=== PATIENT | male | born 1950 | race Caucasian/White ===

== ENCOUNTER 2017-01-16 10:34 | Inpatient (IN) | payer MEDICARE, MEDICAID ==
[~2017-01-16] VITALS: Ht 177.8 cm; Wt 125.6 kg
[~2017-01-16 10:34] MED LIST: CARV6.2548 PO; FURO-151 PO
[2017-01-16] MEDS ORDERED: ACETAMINOPHEN 325MG TABLET PO STA (10:37)
[2017-01-16] MEDS ORDERED: IPRATROPIUM BROMIDE (0.02%) 0.5MG/2.5ML NEB HHN ONE (10:45)
[2017-01-16] MEDS ORDERED: ALBUTEROL (0.5%) 2.5MG/0.5ML NEB HHN ONE (10:45)
[2017-01-16] MEDS ORDERED: METHYLPREDNISOLONE SOD SUCC 125 MG/2 ML VIAL IV ONE (10:45)
[2017-01-16 11:40] LABS: HEMATOCRIT. 40.3 % (42.0-52.0); HEMOGLOBIN. 13.1 g/dL (14.0-18.0); MEAN CORPUSCULAR HEMOGLOBIN 28.6 pg (28.0-32.0); MEAN CORPUSCULAR VOLUME 88.1 fL (80.0-94.0); MEAN PLATELET VOLUME 8.1 fl (7.4-10.4); PLATELET 251 x1000/uL (130-400); RED BLOOD CELL COUNT 4.57 mill/uL (4.7-6.1); RED CELL DISTRIBUTION WIDTH 16.2 % (11.6-14.6)
[2017-01-16 11:50] LABS: INR 1.1
[2017-01-16 11:53] LABS: CARBON DIOXIDE 34 mEq/L (21-32); CHLORIDE 92 mEq/L (98-107)
[2017-01-16 12:00] LABS: TROPONIN I < 0.02 ng/mL (0.00-0.04)
[2017-01-16] MEDS ORDERED: VANCOMYCIN 1 G PREMIX 200 ML IV ONE (12:15)
[2017-01-16] MEDS ORDERED: PIPERACILLIN/TAZ 3.375G PREMIX 50 ML IV ONE (12:15)
[2017-01-16 13:14] LABS: PLATELET ESTIMATE NORMAL
[2017-01-16] MEDS ORDERED: IPRATROPIUM/ALBUTEROL 0.5-3(2.5)MG/3ML NEB INH PRN (14:00)
[2017-01-16] MEDS ORDERED: NA PHOS,M-B/NA PHOS,DI-BA ENEMA 118ML PR PRN (14:00)
[2017-01-16] MEDS ORDERED: CLONIDINE 0.1MG TABLET PO PRN (14:00)
[2017-01-16] MEDS ORDERED: LORAZEPAM 2MG/ML CPJ IV PRN (14:00)
[2017-01-16] MEDS ORDERED: MAGNESIUM/ALUMINUM HYDROXIDE/SIMETHICONE 30ML UDC PO PRN (14:00)
[2017-01-16] MEDS ORDERED: HYDROCODONE/ACETAMINOPHEN 5/325MG TABLET PO PRN (14:00)
[2017-01-16] MEDS ORDERED: HYDROMORPHONE HCL/PF 2MG/ML CPJ IV PRN (14:00)
[2017-01-16] MEDS ORDERED: ONDANSETRON HCL 4MG/2ML VIAL IV PRN (14:00)
[2017-01-16 14:03] LABS: BG BASE EXCESS 7.5 mmol/L (-2.0-2.0); BG BILEVEL POS AIRWAY PRESSURE 15/5; BG CARBOXYHEMOGLOBIN 0.9 % (0.5-1.5); BG DEOXYHEMOGLOBIN 9.8 % (0.0-5.0); BG HCO3 ACT 35.7 mmol/L (22.0-26.0); BG METHEMOGLOBIN 0.2 % (0.0-1.5); BG OXYGEN SATURATION 90.1 % (92.0-98.5); BG OXYHEMOGLOBIN 89.1 % (94.0-97.0); BG PCO2 67.3 mmHg (35.0-45.0); BG PH 7.343 (7.350-7.450); BG SAMPLE SITE RIGHT RADIAL; BG TOTAL HEMOGLOBIN 14.3 g/dL (12.0-18.0); BG VENT MODE MASK - BIPAP; BG VENT RATE 14 set
[2017-01-16] MEDS ORDERED: AMINOPHYLLINE 1,000 MG in SODIUM CHLORIDE 0.9% 210 ML IV SCH ×4 (16:00)
[2017-01-16] MEDS ORDERED: DEXTROSE 50% WATER 50ML SYRINGE IV PRN (17:15)
[2017-01-16 17:16] VITALS: BP 130/82
[2017-01-16] MEDS ORDERED: DOCUSATE SODIUM 100MG CAPSULE PO PRN (17:30)
[2017-01-16 18:00] VITALS: BP 112/63
[2017-01-16] MEDS ORDERED: LEVOFLOXACIN 500MG PREMIX 100 ML IV SCH (18:00)
[2017-01-16] MEDS: INSULIN LISPRO 100 UNITS/ML SUBCUT SCH ×2 (18:08→20:53)
[2017-01-16] MEDS: ASPIRIN 81MG EC TABLET PO SCH (18:15)
[2017-01-16] MEDS: METHYLPREDNISOLONE SOD SUCC 125 MG/2 ML VIAL IV SCH ×2 (18:16→23:23)
[2017-01-16 18:30] VITALS: BP 113/64
[2017-01-16] MEDS ORDERED: FUROSEMIDE 40MG TABLET PO SCH (19:30)
[2017-01-16 20:00] VITALS: BP 105/67
[2017-01-16] MEDS: BLOOD SUGAR DIAGNOSTIC STRIP TEST SCH (20:52)
[2017-01-16] MEDS: ENOXAPARIN 40MG/0.4ML SYR SUBCUT SCH (20:55)
[2017-01-16] MEDS: IPRATROPIUM/ALBUTEROL 0.5-3(2.5)MG/3ML NEB HHN SCH (21:04)
[2017-01-16 21:20] LABS: BG BASE EXCESS 6.5 mmol/L (-2.0-2.0); BG BILEVEL POS AIRWAY PRESSURE 15/5; BG CARBOXYHEMOGLOBIN 0.7 % (0.5-1.5); BG DEOXYHEMOGLOBIN 10.1 % (0.0-5.0); BG FRACTION INSPIRED OXYGEN 55; BG METHEMOGLOBIN 0.4 % (0.0-1.5); BG OXYGEN SATURATION 89.8 % (92.0-98.5); BG OXYHEMOGLOBIN 88.8 % (94.0-97.0); BG PCO2 61.6 mmHg (35.0-45.0); BG SAMPLE SITE RIGHT RADIAL; BG TOTAL HEMOGLOBIN 14.2 g/dL (12.0-18.0); BG VENT MODE MASK - BIPAP
[2017-01-16 22:00] VITALS: BP 130/72
[2017-01-16 23:36] LABS: CARBON DIOXIDE 32 mEq/L (21-32); CHLORIDE 93 mEq/L (98-107); TROPONIN I < 0.02 ng/mL (0.00-0.04)
[2017-01-17] VITALS (13 sets, daily range): BP systolic 108–134; BP diastolic 40–90
[2017-01-17 00:32] LABS: CLARITY URINE CLEAR (CLEAR); COLOR URINE DARK YELLOW (YELLOW); GLUCOSE URINE TRACE (NEGATIVE); KETONES URINE NEGATIVE (NEGATIVE); LEUKOCYTE ESTERASE URINE NEGATIVE (NEGATIVE); NITRITE URINE NEGATIVE (NEGATIVE); OCCULT BLOOD URINE TRACE (NEGATIVE); PROTEIN URINE 1+ (NEGATIVE); SPECIFIC GRAVITY URINE 1.024 (1.005-1.030); UROBILINOGEN URINE 0.2 E.U./dL (0.2-1.0)
[2017-01-17] MEDS: IPRATROPIUM/ALBUTEROL 0.5-3(2.5)MG/3ML NEB HHN SCH ×6 (00:36→20:14)
[2017-01-17] MEDS: BLOOD SUGAR DIAGNOSTIC STRIP TEST SCH ×4 (05:37→20:34)
[2017-01-17] MEDS: METHYLPREDNISOLONE SOD SUCC 125 MG/2 ML VIAL IV SCH ×3 (05:37→17:11)
[2017-01-17 05:50] LABS: HEMATOCRIT. 40.2 % (42.0-52.0); HEMOGLOBIN. 13.2 g/dL (14.0-18.0); MEAN CORPUSCULAR HEMOGLOBIN 28.9 pg (28.0-32.0); MEAN CORPUSCULAR VOLUME 88.2 fL (80.0-94.0); MEAN PLATELET VOLUME 8.2 fl (7.4-10.4); PLATELET 258 x1000/uL (130-400); RED BLOOD CELL COUNT 4.56 mill/uL (4.7-6.1); RED CELL DISTRIBUTION WIDTH 15.7 % (11.6-14.6)
[2017-01-17 06:42] LABS: CHLORIDE 94 mEq/L (98-107)
[2017-01-17 06:49] LABS: CARBON DIOXIDE 34 mEq/L (21-32); HDL CHOLESTEROL 42 mg/dL (40-59); LDL CHOLESTEROL 91 mg/dL (5-100)
[2017-01-17] MEDS: INSULIN LISPRO 100 UNITS/ML SUBCUT SCH ×4 (08:04→20:35)
[2017-01-17] MEDS: ENOXAPARIN 40MG/0.4ML SYR SUBCUT SCH ×2 (08:05→20:32)
[2017-01-17] MEDS: FUROSEMIDE 40MG/4ML VIAL IV SCH (08:05)
[2017-01-17] MEDS: ASPIRIN 81MG EC TABLET PO SCH (08:05)
[2017-01-17] MEDS: CARVEDILOL 6.25 MG TABLET PO SCH ×2 (08:17→17:12)
[2017-01-17 09:02] LABS: BG BASE EXCESS 6.7 mmol/L (-2.0-2.0); BG CARBOXYHEMOGLOBIN 0.2 % (0.5-1.5); BG DEOXYHEMOGLOBIN 10.1 % (0.0-5.0); BG FRACTION INSPIRED OXYGEN 36; BG HCO3 ACT 35.5 mmol/L (22.0-26.0); BG METHEMOGLOBIN 0.2 % (0.0-1.5); BG OXYGEN SATURATION 89.9 % (92.0-98.5); BG OXYHEMOGLOBIN 89.5 % (94.0-97.0); BG PCO2 70.5 mmHg (35.0-45.0); BG PO2 59.9 mmHg (75.0-100.0); BG SAMPLE SITE RIGHT RADIAL; BG TOTAL HEMOGLOBIN 14.7 g/dL (12.0-18.0); BG VENT MODE NASAL CANNULA
[2017-01-17] MEDS: VANCOMYCIN 1500MG in DEXTROSE 5% WATER 250ML IV SCH (11:59)
[2017-01-17] MEDS ORDERED: MORPHINE SULFATE 10 MG/ML CPJ IV PRN (13:15)
[2017-01-17] MEDS ORDERED: TERBUTALINE SULFATE 1MG/ML VIAL SUBCUT SCH (13:15)
[2017-01-17] MEDS ORDERED: THIAMINE HCL 100MG TABLET PO SCH (13:15)
[2017-01-17] MEDS ORDERED: FUROSEMIDE 40MG/4ML VIAL IVP SCH (13:15)
[2017-01-17] MEDS ORDERED: FOLIC ACID IV SCH (14:00)
[2017-01-17] MEDS ORDERED: SODIUM CHLORIDE 0.9% IV SCH (14:00)
[2017-01-17 14:30] LABS: PLATELET ESTIMATE NORMAL
[2017-01-17] MEDS ORDERED: SODIUM BICARBONATE 4% (2.4MEQ) 5ML VIAL IV ONE (15:01)
[2017-01-17] MEDS ORDERED: LIDOCAINE HCL 1% 20ML VIAL (Pyxis) INJ ONE (15:01)
[2017-01-17 15:41] LABS: *AMPHETAMINES SCREEN URINE NEGATIVE (NEGATIVE); *BARBITURATES SCREEN URINE NEGATIVE (NEGATIVE); *BENZODIAZEPINES SCREEN URINE NEGATIVE (NEGATIVE); *COCAINE SCREEN URINE NEGATIVE (NEGATIVE); CANNABINOID URINE SCREEN NEGATIVE (NEGATIVE); METHADONE URINE SCREEN NEGATIVE (NEGATIVE); OPIATES URINE SCREEN PRESUMTIVE POSITIVE (NEGATIVE); PHENCYCLIDINE URINE SCREEN NEGATIVE (NEGATIVE)
[2017-01-17 16:58] LABS: AMMONIA 30 uMol/L (<32)
[2017-01-17 18:04] LABS: HEPATITIS B SURFACE ANTIGEN NEGATIVE
[2017-01-17 18:32] LABS: HEPATITIS B CORE AB IGM NEGATIVE
[2017-01-17] MEDS ORDERED: LEVOFLOXACIN 500MG PREMIX 100 ML IV SCH (20:00)
[2017-01-17] MEDS: BUDESONIDE 0.5MG/2ML NEB HHN SCH (20:13)
[2017-01-17 20:35] LABS: BG BASE EXCESS 11.9 mmol/L (-2.0-2.0); BG BILEVEL POS AIRWAY PRESSURE 15/5; BG CARBOXYHEMOGLOBIN 0.5 % (0.5-1.5); BG DEOXYHEMOGLOBIN 7.8 % (0.0-5.0); BG FRACTION INSPIRED OXYGEN 55; BG HCO3 ACT 39.3 mmol/L (22.0-26.0); BG METHEMOGLOBIN 0.3 % (0.0-1.5); BG OXYGEN SATURATION 92.1 % (92.0-98.5); BG OXYHEMOGLOBIN 91.4 % (94.0-97.0); BG PH 7.413 (7.350-7.450); BG PO2 61.5 mmHg (75.0-100.0); BG SAMPLE SITE RIGHT RADIAL; BG TOTAL HEMOGLOBIN 14.1 g/dL (12.0-18.0); BG VENT MODE MASK - BIPAP
[2017-01-18] VITALS (18 sets, daily range): BP systolic 104–157; BP diastolic 60–93
[2017-01-18] MEDS: IPRATROPIUM/ALBUTEROL 0.5-3(2.5)MG/3ML NEB HHN SCH ×6 (00:41→20:47)
[2017-01-18] MEDS: METHYLPREDNISOLONE SOD SUCC 125 MG/2 ML VIAL IV SCH ×4 (00:45→20:36)
[2017-01-18] MEDS: VANCOMYCIN 1500MG in DEXTROSE 5% WATER 250ML IV SCH (06:09)
[2017-01-18] MEDS: BLOOD SUGAR DIAGNOSTIC STRIP TEST SCH ×4 (06:55→20:50)
[2017-01-18 07:21] LABS: BG BASE EXCESS 12.1 mmol/L (-2.0-2.0); BG BILEVEL POS AIRWAY PRESSURE 15/5; BG CARBOXYHEMOGLOBIN 0.3 % (0.5-1.5); BG DEOXYHEMOGLOBIN 7.4 % (0.0-5.0); BG FRACTION INSPIRED OXYGEN 55; BG HCO3 ACT 39.9 mmol/L (22.0-26.0); BG METHEMOGLOBIN 0.2 % (0.0-1.5); BG OXYGEN SATURATION 92.6 % (92.0-98.5); BG OXYHEMOGLOBIN 92.1 % (94.0-97.0); BG PCO2 65.4 mmHg (35.0-45.0); BG PH 7.403 (7.350-7.450); BG PO2 62.6 mmHg (75.0-100.0); BG SAMPLE SITE RIGHT RADIAL; BG TOTAL HEMOGLOBIN 14.2 g/dL (12.0-18.0); BG VENT MODE MASK - BIPAP
[2017-01-18] MEDS: INSULIN LISPRO 100 UNITS/ML SUBCUT SCH ×4 (08:35→21:23)
[2017-01-18] MEDS: ASPIRIN 81MG EC TABLET PO SCH (08:37)
[2017-01-18] MEDS: CARVEDILOL 6.25 MG TABLET PO SCH ×2 (08:37→16:56)
[2017-01-18] MEDS: MULTIVITAMINS,THER W-MINERALS TABLET PO SCH (08:37)
[2017-01-18] MEDS: FUROSEMIDE 40MG/4ML VIAL IV SCH (08:37)
[2017-01-18] MEDS: THIAMINE HCL 100MG TABLET PO SCH (08:37)
[2017-01-18] MEDS ORDERED: LIDOCAINE HCL 1% 20ML VIAL (Pyxis) INJ ONE (08:44)
[2017-01-18] MEDS: FOLIC ACID 1MG TABLET PO SCH (08:49)
[2017-01-18] MEDS: BUDESONIDE 0.5MG/2ML NEB HHN SCH ×2 (08:52→20:48)
[2017-01-18] MEDS: ENOXAPARIN 40MG/0.4ML SYR SUBCUT SCH ×2 (10:46→20:37)
[2017-01-18] MEDS ORDERED: DEXTROSE 50% WATER 50ML SYRINGE IV PRN (11:15)
[2017-01-18] MEDS ORDERED: TETANUS, DIPHTHERIA, PERTUSSIS VAC/PF 0.5ML (>7YR OLD) IM ONE (13:45)
[2017-01-18] MEDS: RIFAMPIN 300MG CAPSULE PO SCH (14:54)
[2017-01-18] MEDS: GUAIFENESIN 200MG/10ML SUGAR FREE UDC PO PRN (18:06)
[2017-01-19] VITALS (16 sets, daily range): BP systolic 98–158; BP diastolic 57–88
[2017-01-19] MEDS: GUAIFENESIN 200MG/10ML SUGAR FREE UDC PO PRN (00:11)
[2017-01-19] MEDS: VANCOMYCIN 1500MG in DEXTROSE 5% WATER 250ML IV SCH (00:11)
[2017-01-19] MEDS: IPRATROPIUM/ALBUTEROL 0.5-3(2.5)MG/3ML NEB HHN SCH ×6 (00:31→20:53)
[2017-01-19] MEDS: METHYLPREDNISOLONE SOD SUCC 125 MG/2 ML VIAL IV SCH ×3 (05:31→21:26)
[2017-01-19 06:56] LABS: HEMATOCRIT. 39.8 % (42.0-52.0); HEMOGLOBIN. 13.3 g/dL (14.0-18.0); MEAN CORPUSCULAR HEMOGLOBIN 29.3 pg (28.0-32.0); MEAN CORPUSCULAR VOLUME 87.9 fL (80.0-94.0); MEAN PLATELET VOLUME 8.3 fl (7.4-10.4); PLATELET 268 x1000/uL (130-400); RED BLOOD CELL COUNT 4.53 mill/uL (4.7-6.1); RED CELL DISTRIBUTION WIDTH 15.7 % (11.6-14.6)
[2017-01-19] MEDS: BLOOD SUGAR DIAGNOSTIC STRIP TEST SCH ×4 (06:57→21:28)
[2017-01-19 07:29] LABS: CARBON DIOXIDE 38 mEq/L (21-32); CHLORIDE 91 mEq/L (98-107)
[2017-01-19] MEDS: INSULIN LISPRO 100 UNITS/ML SUBCUT SCH ×4 (08:32→21:29)
[2017-01-19] MEDS: ENOXAPARIN 40MG/0.4ML SYR SUBCUT SCH ×2 (08:33→21:28)
[2017-01-19] MEDS: RIFAMPIN 300MG CAPSULE PO SCH (08:38)
[2017-01-19] MEDS: MULTIVITAMINS,THER W-MINERALS TABLET PO SCH (08:38)
[2017-01-19] MEDS: THIAMINE HCL 100MG TABLET PO SCH (08:38)
[2017-01-19] MEDS: FOLIC ACID 1MG TABLET PO SCH (08:38)
[2017-01-19] MEDS: FUROSEMIDE 40MG/4ML VIAL IV SCH (08:38)
[2017-01-19] MEDS: ASPIRIN 81MG EC TABLET PO SCH (08:38)
[2017-01-19] MEDS: CARVEDILOL 6.25 MG TABLET PO SCH ×2 (08:38→17:51)
[2017-01-19] MEDS: BUDESONIDE 0.5MG/2ML NEB HHN SCH ×2 (09:39→20:53)
[2017-01-19] MEDS ORDERED: TERBUTALINE SULFATE 1MG/ML VIAL SUBCUT SCH (10:45)
[2017-01-19 11:06] LABS: BG BASE EXCESS 14.9 mmol/L (-2.0-2.0); BG BILEVEL POS AIRWAY PRESSURE ST=15/5; BG CARBOXYHEMOGLOBIN 0.9 % (0.5-1.5); BG DEOXYHEMOGLOBIN 6.9 % (0.0-5.0); BG FRACTION INSPIRED OXYGEN 55; BG HCO3 ACT 41.1 mmol/L (22.0-26.0); BG METHEMOGLOBIN 0.3 % (0.0-1.5); BG OXYHEMOGLOBIN 91.9 % (94.0-97.0); BG PCO2 55.5 mmHg (35.0-45.0); BG PH 7.487 (7.350-7.450); BG PO2 61.5 mmHg (75.0-100.0); BG PRESSURE SUPPORT 10; BG SAMPLE SITE LEFT RADIAL; BG TOTAL HEMOGLOBIN 14.6 g/dL (12.0-18.0); BG VENT MODE MASK - BIPAP; BG VENT RATE 18 set
[2017-01-19 11:34] LABS: CARBON DIOXIDE 35 mEq/L (21-32); CHLORIDE 89 mEq/L (98-107)
[2017-01-19 11:59] LABS: PLATELET ESTIMATE NORMAL
[2017-01-19 14:55] LABS: HEPATITIS A AB IGM NEGATIVE (NEGATIVE)
[2017-01-19] MEDS: VANCOMYCIN 2,000 MG in DEXT 5% WATER 500 ML IV SCH (16:30)
[2017-01-19] MEDS: LEVOFLOXACIN 500MG TABLET PO SCH (16:30)
[2017-01-20] VITALS (20 sets, daily range): BP systolic 94–146; BP diastolic 50–113
[2017-01-20] MEDS: IPRATROPIUM/ALBUTEROL 0.5-3(2.5)MG/3ML NEB HHN SCH ×6 (00:48→20:48)
[2017-01-20] MEDS: METHYLPREDNISOLONE SOD SUCC 125 MG/2 ML VIAL IV SCH ×2 (05:15→11:55)
[2017-01-20] MEDS: BLOOD SUGAR DIAGNOSTIC STRIP TEST SCH ×4 (06:12→20:54)
[2017-01-20] MEDS: FUROSEMIDE 40MG/4ML VIAL IV SCH (08:11)
[2017-01-20] MEDS: CARVEDILOL 6.25 MG TABLET PO SCH ×2 (08:11→17:00)
[2017-01-20] MEDS: MULTIVITAMINS,THER W-MINERALS TABLET PO SCH (08:11)
[2017-01-20] MEDS: THIAMINE HCL 100MG TABLET PO SCH (08:11)
[2017-01-20] MEDS: LEVOFLOXACIN 500MG TABLET PO SCH (08:11)
[2017-01-20] MEDS: ASPIRIN 81MG EC TABLET PO SCH (08:11)
[2017-01-20] MEDS: FOLIC ACID 1MG TABLET PO SCH (08:11)
[2017-01-20] MEDS: ENOXAPARIN 40MG/0.4ML SYR SUBCUT SCH ×2 (08:12→20:51)
[2017-01-20] MEDS: INSULIN LISPRO 100 UNITS/ML SUBCUT SCH ×4 (08:13→20:57)
[2017-01-20] MEDS: RIFAMPIN 300MG CAPSULE PO SCH (08:17)
[2017-01-20] MEDS: BUDESONIDE 0.5MG/2ML NEB HHN SCH ×2 (09:34→20:48)
[2017-01-20] MEDS: VANCOMYCIN 2,000 MG in DEXT 5% WATER 500 ML IV SCH (09:37)
[2017-01-20] MEDS: DIPHENHYDRAMINE 50MG/ML VIAL IV PRN (15:02)
[2017-01-20] MEDS: METHYLPREDNISOLONE SOD SUCC 40 MG/ML VIAL IV SCH (16:57)
[2017-01-21] VITALS (20 sets, daily range): BP systolic 95–127; BP diastolic 45–82
[2017-01-21] MEDS: IPRATROPIUM/ALBUTEROL 0.5-3(2.5)MG/3ML NEB HHN SCH ×6 (00:53→19:48)
[2017-01-21] MEDS: METHYLPREDNISOLONE SOD SUCC 40 MG/ML VIAL IV SCH ×4 (01:08→23:57)
[2017-01-21] MEDS: VANCOMYCIN 2,000 MG in DEXT 5% WATER 500 ML IV SCH (03:57)
[2017-01-21] MEDS: BLOOD SUGAR DIAGNOSTIC STRIP TEST SCH ×4 (06:02→22:30)
[2017-01-21] MEDS: RIFAMPIN 300MG CAPSULE PO SCH (08:06)
[2017-01-21] MEDS: FUROSEMIDE 40MG/4ML VIAL IV SCH (08:06)
[2017-01-21] MEDS: FOLIC ACID 1MG TABLET PO SCH (08:07)
[2017-01-21] MEDS: CARVEDILOL 6.25 MG TABLET PO SCH ×2 (08:07→17:05)
[2017-01-21] MEDS: LEVOFLOXACIN 500MG TABLET PO SCH (08:07)
[2017-01-21] MEDS: THIAMINE HCL 100MG TABLET PO SCH (08:07)
[2017-01-21] MEDS: MULTIVITAMINS,THER W-MINERALS TABLET PO SCH (08:07)
[2017-01-21] MEDS: ASPIRIN 81MG EC TABLET PO SCH (08:07)
[2017-01-21] MEDS: ENOXAPARIN 40MG/0.4ML SYR SUBCUT SCH ×2 (08:07→22:55)
[2017-01-21] MEDS: INSULIN LISPRO 100 UNITS/ML SUBCUT SCH ×4 (08:10→22:59)
[2017-01-21] MEDS: BUDESONIDE 0.5MG/2ML NEB HHN SCH ×2 (09:18→19:48)
[2017-01-21] MEDS: DIPHENHYDRAMINE 50MG/ML VIAL IV PRN (23:04)
[2017-01-21] MEDS: VANCOMYCIN 1500MG in DEXTROSE 5% WATER 250ML IV SCH (23:58)
[2017-01-22] VITALS (17 sets, daily range): BP systolic 92–135; BP diastolic 33–78
[2017-01-22] MEDS: IPRATROPIUM/ALBUTEROL 0.5-3(2.5)MG/3ML NEB HHN SCH ×6 (00:27→20:48)
[2017-01-22] MEDS: BLOOD SUGAR DIAGNOSTIC STRIP TEST SCH ×4 (06:13→20:31)
[2017-01-22] MEDS: BUDESONIDE 0.5MG/2ML NEB HHN SCH ×2 (08:55→20:48)
[2017-01-22] MEDS: CARVEDILOL 6.25 MG TABLET PO SCH ×2 (09:00→16:27)
[2017-01-22] MEDS: INSULIN LISPRO 100 UNITS/ML SUBCUT SCH ×4 (09:28→20:51)
[2017-01-22] MEDS: METHYLPREDNISOLONE SOD SUCC 40 MG/ML VIAL IV SCH ×3 (09:37→20:59)
[2017-01-22] MEDS: ENOXAPARIN 40MG/0.4ML SYR SUBCUT SCH ×2 (09:37→20:59)
[2017-01-22] MEDS: FUROSEMIDE 40MG/4ML VIAL IV SCH (09:37)
[2017-01-22] MEDS: LEVOFLOXACIN 500MG TABLET PO SCH (09:38)
[2017-01-22] MEDS: RIFAMPIN 300MG CAPSULE PO SCH (09:38)
[2017-01-22] MEDS: THIAMINE HCL 100MG TABLET PO SCH (09:38)
[2017-01-22] MEDS: FOLIC ACID 1MG TABLET PO SCH (09:41)
[2017-01-22] MEDS: ASPIRIN 81MG EC TABLET PO SCH (09:41)
[2017-01-22] MEDS: MULTIVITAMINS,THER W-MINERALS TABLET PO SCH (09:41)
[2017-01-22] MEDS: VANCOMYCIN 1500MG in DEXTROSE 5% WATER 250ML IV SCH (17:17)
[2017-01-22] MEDS: DIPHENHYDRAMINE 50MG/ML VIAL IV PRN (22:03)
[2017-01-23] VITALS (13 sets, daily range): BP systolic 100–129; BP diastolic 54–82
[2017-01-23] MEDS: IPRATROPIUM/ALBUTEROL 0.5-3(2.5)MG/3ML NEB HHN SCH ×6 (00:50→21:01)
[2017-01-23] MEDS: BLOOD SUGAR DIAGNOSTIC STRIP TEST SCH ×4 (06:16→20:19)
[2017-01-23 06:37] LABS: HEMATOCRIT. 43.3 % (42.0-52.0); HEMOGLOBIN. 14.2 g/dL (14.0-18.0); MEAN CORPUSCULAR HEMOGLOBIN 28.5 pg (28.0-32.0); MEAN CORPUSCULAR VOLUME 86.6 fL (80.0-94.0); PLATELET 302 x1000/uL (130-400); RED BLOOD CELL COUNT 4.99 mill/uL (4.7-6.1); RED CELL DISTRIBUTION WIDTH 15.9 % (11.6-14.6)
[2017-01-23] MEDS: INSULIN LISPRO 100 UNITS/ML SUBCUT SCH ×4 (07:20→20:20)
[2017-01-23 08:21] LABS: CARBON DIOXIDE 36 mEq/L (21-32); CHLORIDE 93 mEq/L (98-107)
[2017-01-23] MEDS: ASPIRIN 81MG EC TABLET PO SCH (08:38)
[2017-01-23] MEDS: METHYLPREDNISOLONE SOD SUCC 40 MG/ML VIAL IV SCH ×2 (08:38→20:19)
[2017-01-23] MEDS: THIAMINE HCL 100MG TABLET PO SCH (08:38)
[2017-01-23] MEDS: MULTIVITAMINS,THER W-MINERALS TABLET PO SCH (08:38)
[2017-01-23] MEDS: LEVOFLOXACIN 500MG TABLET PO SCH (08:38)
[2017-01-23] MEDS: FUROSEMIDE 40MG/4ML VIAL IV SCH (08:38)
[2017-01-23] MEDS: RIFAMPIN 300MG CAPSULE PO SCH (08:38)
[2017-01-23] MEDS: ENOXAPARIN 40MG/0.4ML SYR SUBCUT SCH ×2 (08:38→20:19)
[2017-01-23] MEDS: FOLIC ACID 1MG TABLET PO SCH (08:38)
[2017-01-23] MEDS: CARVEDILOL 6.25 MG TABLET PO SCH ×2 (08:39→17:45)
[2017-01-23 09:01] LABS: BG BASE EXCESS 5.2 mmol/L (-2.0-2.0); BG CARBOXYHEMOGLOBIN 0.7 % (0.5-1.5); BG DEOXYHEMOGLOBIN 8.7 % (0.0-5.0); BG FRACTION INSPIRED OXYGEN 100; BG HCO3 ACT 30.4 mmol/L (22.0-26.0); BG METHEMOGLOBIN 0.3 % (0.0-1.5); BG OXYGEN SATURATION 91.2 % (92.0-98.5); BG OXYHEMOGLOBIN 90.3 % (94.0-97.0); BG PCO2 46.1 mmHg (35.0-45.0); BG PH 7.437 (7.350-7.450); BG PO2 58.3 mmHg (75.0-100.0); BG SAMPLE SITE RIGHT RADIAL; BG TOTAL HEMOGLOBIN 15.6 g/dL (12.0-18.0); BG VENT MODE VAPOTHERM
[2017-01-23] MEDS: BUDESONIDE 0.5MG/2ML NEB HHN SCH (09:13)
[2017-01-23 10:44] LABS: PLATELET ESTIMATE NORMAL
[2017-01-23] MEDS: VANCOMYCIN 1500MG in DEXTROSE 5% WATER 250ML IV SCH (11:56)
[2017-01-24] VITALS (10 sets, daily range): BP systolic 94–122; BP diastolic 32–74
[2017-01-24] MEDS: IPRATROPIUM/ALBUTEROL 0.5-3(2.5)MG/3ML NEB HHN SCH ×6 (00:59→20:57)
[2017-01-24 03:06] LABS: CHLORIDE 92 mEq/L (98-107)
[2017-01-24 03:16] LABS: CARBON DIOXIDE 33 mEq/L (21-32)
[2017-01-24] MEDS: VANCOMYCIN 1500MG in DEXTROSE 5% WATER 250ML IV SCH (06:38)
[2017-01-24] MEDS: INSULIN LISPRO 100 UNITS/ML SUBCUT SCH ×4 (06:41→21:58)
[2017-01-24] MEDS: BLOOD SUGAR DIAGNOSTIC STRIP TEST SCH ×4 (06:41→21:56)
[2017-01-24] MEDS: METHYLPREDNISOLONE SOD SUCC 40 MG/ML VIAL IV SCH (08:17)
[2017-01-24] MEDS: THIAMINE HCL 100MG TABLET PO SCH (08:18)
[2017-01-24] MEDS: FUROSEMIDE 40MG/4ML VIAL IV SCH (08:18)
[2017-01-24] MEDS: MULTIVITAMINS,THER W-MINERALS TABLET PO SCH (08:18)
[2017-01-24] MEDS: RIFAMPIN 300MG CAPSULE PO SCH (08:18)
[2017-01-24] MEDS: ENOXAPARIN 40MG/0.4ML SYR SUBCUT SCH ×2 (08:18→21:56)
[2017-01-24] MEDS: LEVOFLOXACIN 500MG TABLET PO SCH (08:18)
[2017-01-24] MEDS: FOLIC ACID 1MG TABLET PO SCH (08:18)
[2017-01-24] MEDS: ASPIRIN 81MG EC TABLET PO SCH (08:19)
[2017-01-24] MEDS: CARVEDILOL 6.25 MG TABLET PO SCH ×2 (08:19→16:46)
[2017-01-24] MEDS ORDERED: AMLODIPINE 5MG TABLET PO NR (10:00)
[2017-01-24 11:40] LABS: BG BASE EXCESS 9.7 mmol/L (-2.0-2.0); BG CARBOXYHEMOGLOBIN 0.6 % (0.5-1.5); BG DEOXYHEMOGLOBIN 9.4 % (0.0-5.0); BG FRACTION INSPIRED OXYGEN 100; BG METHEMOGLOBIN 0.3 % (0.0-1.5); BG OXYGEN SATURATION 90.5 % (92.0-98.5); BG OXYHEMOGLOBIN 89.7 % (94.0-97.0); BG PCO2 48.8 mmHg (35.0-45.0); BG PH 7.474 (7.350-7.450); BG PO2 54.7 mmHg (75.0-100.0); BG SAMPLE SITE RIGHT RADIAL; BG TOTAL HEMOGLOBIN 15.5 g/dL (12.0-18.0); BG VENT MODE VAPOTHERM
[2017-01-24] MEDS: THEOPHYLLINE ANHYDROUS 80 MG/15 ML 120ML PO SCH ×2 (13:18→21:56)
[2017-01-24] MEDS: DIPHENHYDRAMINE 50MG/ML VIAL IV PRN (21:54)
[2017-01-24] MEDS: AMLODIPINE 5MG TABLET PO SCH (21:55)
[2017-01-25] VITALS (13 sets, daily range): BP systolic 96–139; BP diastolic 49–87
[2017-01-25] MEDS: IPRATROPIUM/ALBUTEROL 0.5-3(2.5)MG/3ML NEB HHN SCH ×5 (01:15→21:06)
[2017-01-25] MEDS: BLOOD SUGAR DIAGNOSTIC STRIP TEST SCH ×4 (06:20→21:53)
[2017-01-25] MEDS: THEOPHYLLINE ANHYDROUS 80 MG/15 ML 120ML PO SCH (06:20)
[2017-01-25] MEDS: VANCOMYCIN 1500MG in DEXTROSE 5% WATER 250ML IV SCH ×2 (06:20→17:36)
[2017-01-25] MEDS: INSULIN LISPRO 100 UNITS/ML SUBCUT SCH ×4 (07:20→21:52)
[2017-01-25] MEDS: ASPIRIN 81MG EC TABLET PO SCH (08:14)
[2017-01-25] MEDS: FOLIC ACID 1MG TABLET PO SCH (08:14)
[2017-01-25] MEDS: MULTIVITAMINS,THER W-MINERALS TABLET PO SCH (08:14)
[2017-01-25] MEDS: RIFAMPIN 300MG CAPSULE PO SCH (08:14)
[2017-01-25] MEDS: THIAMINE HCL 100MG TABLET PO SCH (08:14)
[2017-01-25] MEDS ORDERED: PREDNISONE 20MG TABLET PO SCH (09:00)
[2017-01-25] MEDS: AMLODIPINE 5MG TABLET PO SCH ×2 (09:34→21:49)
[2017-01-25] MEDS: FUROSEMIDE 40MG/4ML VIAL IV SCH (09:34)
[2017-01-25] MEDS: CARVEDILOL 6.25 MG TABLET PO SCH (09:34)
[2017-01-25] MEDS: ENOXAPARIN 40MG/0.4ML SYR SUBCUT SCH (09:36)
[2017-01-25] MEDS: SILDENAFIL CITRATE 20MG TABLET PO SCH ×2 (14:18→22:40)
[2017-01-25] MEDS: BUDESONIDE 0.5MG/2ML NEB HHN SCH ×2 (17:10→21:05)
[2017-01-25] MEDS: ACETAMINOPHEN 325MG TABLET PO PRN (17:42)
[2017-01-25] MEDS: METOPROLOL TARTRATE 25MG TABLET PO SCH (21:48)
[2017-01-25] MEDS: ENOXAPARIN 30MG/0.3ML SYR SUBCUT SCH (21:49)
[2017-01-26] VITALS (13 sets, daily range): BP systolic 92–125; BP diastolic 35–75
[2017-01-26] MEDS: IPRATROPIUM/ALBUTEROL 0.5-3(2.5)MG/3ML NEB HHN SCH ×6 (00:15→21:06)
[2017-01-26 06:16] LABS: BASOPHILS % 0.2 % (0.0-2.0); EOSINOPHILS % 2.6 % (0.0-5.0); HEMATOCRIT. 42.7 % (42.0-52.0); LYMPHOCYTES % 18.5 % (20.0-50.0); MEAN CORPUSCULAR HEMOGLOBIN 28.7 pg (28.0-32.0); MEAN CORPUSCULAR VOLUME 87.3 fL (80.0-94.0); MEAN PLATELET VOLUME 8.3 fl (7.4-10.4); MONOCYTES % 8.9 % (2.0-8.0); NEUTROPHILS % 69.8 % (40.0-76.0); PLATELET 288 x1000/uL (130-400); RED BLOOD CELL COUNT 4.89 mill/uL (4.7-6.1); RED CELL DISTRIBUTION WIDTH 15.9 % (11.6-14.6)
[2017-01-26] MEDS: SILDENAFIL CITRATE 20MG TABLET PO SCH ×3 (06:25→21:19)
[2017-01-26] MEDS: BLOOD SUGAR DIAGNOSTIC STRIP TEST SCH ×4 (06:29→21:38)
[2017-01-26] MEDS: INSULIN LISPRO 100 UNITS/ML SUBCUT SCH ×4 (06:29→21:37)
[2017-01-26 07:05] LABS: CARBON DIOXIDE 33 mEq/L (21-32); CHLORIDE 94 mEq/L (98-107)
[2017-01-26] MEDS: FUROSEMIDE 40MG/4ML VIAL IV SCH (08:15)
[2017-01-26] MEDS: RIFAMPIN 300MG CAPSULE PO SCH (08:16)
[2017-01-26] MEDS: ASPIRIN 81MG EC TABLET PO SCH (08:16)
[2017-01-26] MEDS: THIAMINE HCL 100MG TABLET PO SCH (08:16)
[2017-01-26] MEDS: MULTIVITAMINS,THER W-MINERALS TABLET PO SCH (08:16)
[2017-01-26] MEDS: METOPROLOL TARTRATE 25MG TABLET PO SCH ×2 (08:17→20:22)
[2017-01-26] MEDS: AMLODIPINE 5MG TABLET PO SCH ×2 (08:17→20:22)
[2017-01-26] MEDS: FOLIC ACID 1MG TABLET PO SCH (08:18)
[2017-01-26] MEDS: ENOXAPARIN 30MG/0.3ML SYR SUBCUT SCH ×2 (08:18→20:22)
[2017-01-26] MEDS: BUDESONIDE 0.5MG/2ML NEB HHN SCH ×2 (09:17→21:06)
[2017-01-26] MEDS: VANCOMYCIN 1500MG in DEXTROSE 5% WATER 250ML IV SCH (12:11)
[2017-01-26] MEDS: DIPHENHYDRAMINE 50MG/ML VIAL IV PRN (20:21)
[2017-01-26] MEDS: ACETAMINOPHEN 325MG TABLET PO PRN (20:21)
[2017-01-27] VITALS (12 sets, daily range): BP systolic 90–143; BP diastolic 52–88
[2017-01-27] MEDS: IPRATROPIUM/ALBUTEROL 0.5-3(2.5)MG/3ML NEB HHN SCH ×7 (01:22→20:24)
[2017-01-27] MEDS: DIPHENHYDRAMINE 50MG/ML VIAL IV PRN ×2 (01:44→21:39)
[2017-01-27] MEDS: ACETAMINOPHEN 325MG TABLET PO PRN ×2 (02:17→21:59)
[2017-01-27] MEDS: SILDENAFIL CITRATE 20MG TABLET PO SCH ×3 (05:03→21:21)
[2017-01-27] MEDS: VANCOMYCIN 1500MG in DEXTROSE 5% WATER 250ML IV SCH (05:03)
[2017-01-27] MEDS: BLOOD SUGAR DIAGNOSTIC STRIP TEST SCH ×4 (06:50→21:21)
[2017-01-27] MEDS: THIAMINE HCL 100MG TABLET PO SCH (08:30)
[2017-01-27] MEDS: ENOXAPARIN 30MG/0.3ML SYR SUBCUT SCH ×2 (08:30→21:23)
[2017-01-27] MEDS: METOPROLOL TARTRATE 25MG TABLET PO SCH ×2 (08:31→21:00)
[2017-01-27] MEDS: FOLIC ACID 1MG TABLET PO SCH (08:31)
[2017-01-27] MEDS: FUROSEMIDE 40MG/4ML VIAL IV SCH (08:31)
[2017-01-27] MEDS: AMLODIPINE 5MG TABLET PO SCH ×2 (08:31→21:00)
[2017-01-27] MEDS: ASPIRIN 81MG EC TABLET PO SCH (08:31)
[2017-01-27] MEDS: RIFAMPIN 300MG CAPSULE PO SCH (08:31)
[2017-01-27] MEDS: MULTIVITAMINS,THER W-MINERALS TABLET PO SCH (08:31)
[2017-01-27] MEDS: INSULIN LISPRO 100 UNITS/ML SUBCUT SCH ×4 (08:33→21:38)
[2017-01-27] MEDS: BUDESONIDE 0.5MG/2ML NEB HHN SCH ×2 (08:58→20:25)
[2017-01-28] VITALS (8 sets, daily range): BP systolic 91–122; BP diastolic 56–83
[2017-01-28] MEDS: IPRATROPIUM/ALBUTEROL 0.5-3(2.5)MG/3ML NEB HHN SCH ×6 (00:10→21:04)
[2017-01-28] MEDS: VANCOMYCIN 1500MG in DEXTROSE 5% WATER 250ML IV SCH ×2 (00:20→19:16)
[2017-01-28] MEDS: BLOOD SUGAR DIAGNOSTIC STRIP TEST SCH ×4 (05:53→21:33)
[2017-01-28] MEDS: SILDENAFIL CITRATE 20MG TABLET PO SCH ×3 (05:53→21:41)
[2017-01-28] MEDS: INSULIN LISPRO 100 UNITS/ML SUBCUT SCH ×4 (07:37→21:49)
[2017-01-28] MEDS: BUDESONIDE 0.5MG/2ML NEB HHN SCH ×2 (08:34→21:04)
[2017-01-28] MEDS: THIAMINE HCL 100MG TABLET PO SCH (08:35)
[2017-01-28] MEDS: ASPIRIN 81MG EC TABLET PO SCH (08:35)
[2017-01-28] MEDS: RIFAMPIN 300MG CAPSULE PO SCH (08:35)
[2017-01-28] MEDS: FOLIC ACID 1MG TABLET PO SCH (08:35)
[2017-01-28] MEDS: METOPROLOL TARTRATE 25MG TABLET PO SCH ×2 (08:44→21:00)
[2017-01-28] MEDS: FUROSEMIDE 40MG/4ML VIAL IV SCH (09:34)
[2017-01-28] MEDS: MULTIVITAMINS,THER W-MINERALS TABLET PO SCH (09:34)
[2017-01-28] MEDS: ENOXAPARIN 30MG/0.3ML SYR SUBCUT SCH ×2 (09:37→21:42)
[2017-01-28] MEDS: AMLODIPINE 5MG TABLET PO SCH ×2 (09:38→21:00)
[2017-01-28] MEDS: ACETAMINOPHEN 325MG TABLET PO PRN (20:29)
[2017-01-28] MEDS: DIPHENHYDRAMINE 50MG/ML VIAL IV PRN (21:41)
[2017-01-29 00:01] VITALS: BP 118/62
== END 2017-01-29 00:37 | DRG 871 ==
LOC: ER 10:57 → 3WST 14:01 → ENRESERV 14:21 → 3WST 01-25 11:34
PROVIDERS: ADMIT Internal Medicine; ATTEND Internal Medicine
PROC: 5A09457 Assistance with Respiratory Ventilation, 24-96 Consecutive Hours, Continuous Positive Airway Pressure (ICD-10-PCS; 2017-01-16)
PROC: 02HV33Z Insertion of Infusion Device into Superior Vena Cava, Percutaneous Approach (ICD-10-PCS; principal; 2017-01-18)
PROC: B548ZZA Ultrasonography of Superior Vena Cava, Guidance (ICD-10-PCS; 2017-01-18)
DX: A41.02 Sepsis due to Methicillin resistant Staphylococcus aureus (principal); J69.0 Pneumonitis due to inhalation of food and vomit; G93.40 Encephalopathy, unspecified; J96.01 Acute respiratory failure with hypoxia; J96.02 Acute respiratory failure with hypercapnia; I50.43 Acute on chronic combined systolic (congestive) and diastolic (congestive) heart failure; E46 Unspecified protein-calorie malnutrition; E66.01 Morbid (severe) obesity due to excess calories; I27.21 Secondary pulmonary arterial hypertension; L03.114 Cellulitis of left upper limb; L03.115 Cellulitis of right lower limb; L03.116 Cellulitis of left lower limb; I42.0 Dilated cardiomyopathy; J98.11 Atelectasis; M86.60 Other chronic osteomyelitis, unspecified site; E11.69 Type 2 diabetes mellitus with other specified complication; I48.0 Paroxysmal atrial fibrillation; J44.9 Chronic obstructive pulmonary disease, unspecified; D64.9 Anemia, unspecified; E78.5 Hyperlipidemia, unspecified; I11.0 Hypertensive heart disease with heart failure; I25.10 Atherosclerotic heart disease of native coronary artery without angina pectoris; I27.81 Cor pulmonale (chronic); N62 Hypertrophy of breast; Z87.891 Personal history of nicotine dependence; Z68.39 Body mass index [BMI] 39.0-39.9, adult
CPT/HCPCS: 36415; 36569; 36600; 71010; 71250; 76937; 80048; 80053; 80061; 80202; 80305; 81001; 82140; 82375; 82693; 82805; 82962; 83605; 83735; 83880; 84484; 85025; 85610; 85651; 86140; 86705; 86709; 86803; 87040; 87070; 87077; 87086; 87205; 87340; 87804; 90715; 93005; 93306; 93970; 94640; 94660; 96365; 96375; 97116; 97162; 97167; 97530; 97535; 99291; C1725; J0280; J1170; J1200; J1650; J1815; J1940; J1956; J2060; J2543; J2920; J2930; J3105; J3370; J3490; J7040; J7050; J7060; J7512; J7611; J7620; J7626

== ENCOUNTER → 2019-05-25 | Outpatient (CLI) | payer MEDICARE, MEDICAID ==
[~2019-05-25] MED LIST changes: +IOHEXOL-350 100 ML BOTTLE ONE
== END | disposition home or self-care (01) ==
LOC: CT 14:28
PROVIDERS: ATTEND Internal Medicine Nephrology
DX: I28.1 Aneurysm of pulmonary artery (principal); J98.11 Atelectasis; I51.7 Cardiomegaly
CPT/HCPCS: 71260; Q9967